=== PATIENT | female | born 1990 | race Two or more races ===

== ENCOUNTER → 2017-06-03 | Outpatient (CLI) | payer BC ==
[2016-08-02 00:17] VITALS: BP 134/76
[~2017-06-03] MED LIST: IBUP-1060 PO; PNV1TABL25 PO
--- NOTE | 2017-06-03 15:03 | RAD ---
PELVIS W/TV Clinical Indication: HEAVY VAGINAL BLEEDING Comparison: None. Technique: Grayscale and color Doppler ultrasound of the pelvis was obtained. Transabdominal and transvaginal techniques were utilized. Findings: The uterus measures 10.1 x 5.7 x 6.0 cm. It contains thickened, heterogeneously hyperechoic endometrium measuring up to 3.4 cm. The bilateral ovaries are normal in appearance with normal blood flow. The right ovary measures 2.3 x 1.3 x 2.4 cm. The left ovary measures 2.2 x 1.9 x 2.2 cm. Trace free fluid seen in the pelvis. IMPRESSION: 1. Thickened, heterogeneously hyperechoic endometrium may relate to blood products given patient's age. Recommend follow-up ultrasound in 6 weeks to document resolution. 2. Trace pelvic free fluid, likely physiologic.
== END | disposition home or self-care (01) ==
LOC: US 09:02
PROVIDERS: ATTEND Family Medicine
DX: N93.9 Abnormal uterine and vaginal bleeding, unspecified (principal)
CPT/HCPCS: 76830; 76856

== ENCOUNTER 2019-10-20 09:16 | Emergency (ER) | payer OTHER ==
[~2019-10-20] VITALS: Ht 157.5 cm; Wt 113.4 kg
[2019-10-20 09:40] VITALS: BP 149/80
[2019-10-20 10:18] LABS: BILIRUBIN,URINE NEGATIVE (NEG); CLARITY,URINE CLOUDY; COLOR,URINE YELLOW; NITRITE,URINE NEGATIVE (NEG); PROTEIN,URINE NEGATIVE (NEG-TRACE); UROBILINOGEN,URINE 0.2 mg/dL (0.2 mg/dL)
[2019-10-20 10:24] LABS: BARBITURATES NEG (NEG); BENZODIAZEPINES NEG (NEG); CANNABINOIDS POS (NEG); COCAINE NEG (NEG); METHADONE NEG (NEG); OPIATES NEG (NEG); PHENCYCLIDINE NEG (NEG)
[2019-10-20 10:31] LABS: AMPHETAMINE/METHAMPHETAMINE NEG (NEG); WBC,URINE >40 /HPF (0-4)
[2019-10-20 10:32] LABS: BACTERIA,URINE MODERATE /HPF (0-FEW); SQUAMOUS EPITHELIAL CELL,UR MANY /LPF
--- NOTE | 2019-10-20 10:37 | PHYS DOC ---
Past Medical History Past Medical History: No Pertinent History Past Surgical History: Cholecystectomy, Tonsillectomy, Other Additional Past Surgical Histo: . Alcohol Use: None Drug Use: None Adult General Chief Complaint Chief Complaint: ABDOMINAL PAIN IN [facility] HPI Patient is a 29 year old female 4 para 2, with 1 , currently 12 weeks who presents to the ED today complaining of abdominal cramping described as mild to moderate that began yesterday. Patient denies any exacerbating or relieving factors to her pain. She is also reporting she had spotting yesterday but nothing today. She reports she saw Dr. 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 Patient denies any nausea, vomiting. Denies any fever. She does also complaining of an area of redness on the left breast that began one week ago. Denies any drainage from the area. Denies any nipple discharge. She reports her tetanus is up-to-date. Patient denies any personal family history of breast cancer. Review of Systems Review of Systems Constitutional: Denies fever or chills [] Eyes: Denies change in visual acuity, redness, or eye pain [] HENT: Denies nasal congestion or sore throat [] Respiratory: Denies cough or shortness of breath [] Cardiovascular: No additional information not addressed in HPI [] GI: Reports abdominal cramping and , vaginal spotting, denies nausea, vomiting, bloody stools or diarrhea [] : Denies dysuria or hematuria [] Musculoskeletal: Denies back pain or joint pain [] Integument: Reports an area of redness on the left breast Neurologic: Denies headache, focal weakness or sensory changes [] All other systems were reviewed and found to be within normal limits, except as documented in this note. Allergies Allergies Allergies Coded Allergies Type Severity Reaction Last Updated Verified No Known Drug Allergies 12/27/13 No Physical Exam Physical Exam Constitutional: Well developed, well nourished, no acute distress, non-toxic appearance. [] HENT: Normocephalic, atraumatic, bilateral external ears normal, oropharynx moist, no oral exudates, nose normal. [] Eyes: PERRLA, EOMI, conjunctiva normal, no discharge. [] Neck: Normal range of motion, no tenderness, supple, no stridor. [] Cardiovascular:Heart rate regular rhythm, no murmur [] Lungs & Thorax: Bilateral breath sounds clear to auscultation [] Abdomen: Bowel sounds normal, soft, no tenderness, no masses, no pulsatile masses. [] Pelvic exam External pelvic appears normal, cervix is not visualized due to body habitus. Trace amount of white discharge noted in the vaginal vault, no bleeding, no adnexal tenderness, no CMT. Skin: Under last breast, left breast at around 8 PM position with an area of redness approximately 3 x 3 cm, the area is firm with no fluctuance, the area is warm and tender to touch. No nipple dimpling, no nipple drainage. This appears to be an abscess with cellulitis that is not ready to be drained. Back: No tenderness, no CVA tenderness. [] Extremities: No tenderness, no cyanosis, no clubbing, ROM intact, no edema. [] Neurologic: Alert and oriented X 3, normal motor function, normal sensory function, no focal deficits noted. [] Psychologic: Affect normal, judgement normal, mood normal. [] Current Patient Data Vital Signs Vital Signs Date Time Temp Pulse Resp B/P (MAP) Pulse Ox O2 Delivery O2 Flow Rate FiO2 10/20/19 09:40 98.0 87 16 149/80 (103) 100 Room Air 98.0 Lab Values Laboratory Tests Test 10/20/19 09:40 10/20/19 10:30 Urine Collection Type Unknown Urine Color Yellow Urine Clarity Cloudy Urine pH 6.0 Urine Specific [place] 1.010 Urine Protein Negative mg/dL (NEG-TRACE) Urine Glucose (UA) Negative mg/dL (NEG) Urine Ketones (Stick) 15 mg/dL (NEG) Urine Blood Moderate (NEG) Urine Nitrite Negative (NEG) Urine Bilirubin Negative (NEG) Urine Urobilinogen Dipstick 0.2 mg/dL (0.2 mg/dL) Urine Leukocyte Esterase Large (NEG) Urine RBC 11-20 /HPF (0-2) Urine WBC >40 /HPF (0-4) Urine Squamous Epithelial Cells Many /LPF Urine Bacteria Moderate /HPF (0-FEW) Urine Mucus Marked /LPF Urine Opiates Screen Neg (NEG) Urine Methadone Screen Neg (NEG) Urine Barbiturates Neg (NEG) Urine Phencyclidine Screen Neg (NEG) Urine Amphetamine/Methamphetamine Neg (NEG) Urine Benzodiazepines Screen Neg (NEG) Urine Cocaine Screen Neg (NEG) Urine Cannabinoids Screen Pos (NEG) Urine Ethyl Alcohol Neg (NEG) White Blood Count 8.2 x10^3/uL (4.0-11.0) Red Blood Count 4.29 x10^6/uL (3.50-5.40) Hemoglobin 11.6 g/dL (12.0-15.5) L Hematocrit 34.5 % (36.0-47.0) L Mean Corpuscular Volume 81 fL (79-100) Mean Corpuscular Hemoglobin 27 pg (25-35) Mean Corpuscular Hemoglobin Concent 34 g/dL (31-37) Red Cell Distribution Width 15.9 % (11.5-14.5) H Platelet Count 213 x10^3/uL (140-400) Neutrophils (%) (Auto) 75 % (31-73) H Lymphocytes (%) (Auto) 18 % (24-48) L Monocytes (%) (Auto) 5 % (0-9) Eosinophils (%) (Auto) 1 % (0-3) Basophils (%) (Auto) 0 % (0-3) Neutrophils # (Auto) 6.1 x10^3/uL (1.8-7.7) Lymphocytes # (Auto) 1.5 x10^3/uL (1.0-4.8) Monocytes # (Auto) 0.4 x10^3/uL (0.0-1.1) Eosinophils # (Auto) 0.1 x10^3/uL (0.0-0.7) Basophils # (Auto) 0.0 x10^3/uL (0.0-0.2) Maternal Serum HCG Beta Subunit 64275 mIU/mL (0-5) H Sodium Level 138 mmol/L (136-145) Potassium Level 3.3 mmol/L (3.5-5.1) L Chloride Level 103 mmol/L (98-107) Carbon Dioxide Level 25 mmol/L (21-32) Anion Gap 10 (6-14) Blood Urea Nitrogen 3 mg/dL (7-20) L Creatinine 0.5 mg/dL (0.6-1.0) L Estimated GFR (Cockcroft-Gault) 145.9 BUN/Creatinine Ratio 6 (6-20) Glucose Level 106 mg/dL (70-99) H Calcium Level 9.1 mg/dL (8.5-10.1) Total Bilirubin 0.5 mg/dL (0.2-1.0) Aspartate Amino Transferase (AST) 12 U/L (15-37) L Alanine Aminotransferase (ALT) 20 U/L (14-59) Alkaline Phosphatase 68 U/L (46-116) Total Protein 7.5 g/dL (6.4-8.2) Albumin 3.1 g/dL (3.4-5.0) L Albumin/Globulin Ratio 0.7 (1.0-1.7) L Laboratory Tests 10/20/19 10:30 Laboratory Tests 10/20/19 10:30 Microbiology 10/20/19 Wet Prep - Final, Complete EKG EKG [] Radiology/Procedures Radiology/Procedures []PROCEDURE: OB < 14 WKS OB < 14 WKS History: Abdominal pain. . Comparison: None. Technique: Grayscale and color Doppler imaging of the pelvis was performed using transabdominal technique. Findings: The uterus measures 17 x 9 x 7 cm in length. Single intrauterine with crown-rump length 5.9 cm. Estimated gestational age by ultrasound 12 weeks 3 days. heart rate 157 bpm. Right ovary measures 3.8 x 2.4 x 2.2 cm and is unremarkable. Left ovary measures 3.2 x 1.7 x 2.2 cm and is unremarkable. No adnexal masses are seen. IMPRESSION: 1. Intrauterine with gestational age 12 weeks 3 days and heart rate 157 bpm. Electronically signed by: Marlon Miles DO (10/20/2019 10:50 AM) [id number] DICTATED and SIGNED BY: MARLON MILES DO DATE: 10/20/19 105 Course & Med Decision Making Course & Med Decision Making Pertinent Labs and Imaging studies reviewed. (See chart for details) This is a 29-year-old female patient currently 12 weeks presenting to the ED today with vaginal spotting in that occurred yesterday, nothing today, abdominal cramping, and abscess and cellulitis on the left breast. The abscess on cellulitis is not ready to be drained. OB ultrasound noted for IUP 12 weeks 3 days heart rate 157. Wet prep with no acute findings lab work with no acute findings Blood group O positive Urine analysis is noted for UTI, will be discharge patient on cephalexin Patient was provided return precautions and discharged in stable condition Provided DOG FOOD SHREDDER OPERATOR for follow-up Eder Disclaimer Dragnabeel Disclaimer This electronic medical record was generated, in whole or in part, using a voice recognition dictation system. Departure Departure Impression: Primary Impression: Abdominal pain during Additional Impressions: Left breast abscess Urinary tract infection during Disposition: HOME, SELF-CARE Condition: STABLE Referrals: NO PCP (PCP) PHILIPPE LENNON MD follow up in 1 week Patient Instructions: Abdominal Pain During , [id number], Abscess, Aeyr-oo-Owin, - Urinary Tract Infection Additional Instructions: You were evaluated in the emergency room for infection on her breast, you also have urinary tract infection. Take the prescribed antibiotics until completed. Please apply warm compresses to the left breast every 12 hours. Please follow-up with an DOG FOOD SHREDDER OPERATOR in the course of next week. Your prescription was sent to the pharmacy [facility] Cephalexin (CEPHALEXIN) 500 Mg Tablet 1 TAB PO BID, #20 TAB Prov: JOSEPH GEORGE APRN 10/20/19 Problem Qualifiers Primary Impression: Abdominal pain during Trimester: first trimester Qualified Codes: O26.891 - Other specified related conditions, first trimester; R10.9 - Unspecified abdominal pain Additional Impressions: Urinary tract infection during Trimester: first trimester Qualified Codes: O23.41 - Unspecified infection of urinary tract in , first trimester JOSEPH GEORGE APRN Oct 20, 2019 10:37
--- NOTE | 2019-10-20 10:53 | RAD ---
OB < 14 WKS History: Abdominal pain. . Comparison: None. Technique: Grayscale and color Doppler imaging of the pelvis was performed using transabdominal technique. Findings: The uterus measures 17 x 9 x 7 cm in length. Single intrauterine with crown-rump length 5.9 cm. Estimated gestational age by ultrasound 12 weeks 3 days. heart rate 157 bpm. Right ovary measures 3.8 x 2.4 x 2.2 cm and is unremarkable. Left ovary measures 3.2 x 1.7 x 2.2 cm and is unremarkable. No adnexal masses are seen. IMPRESSION: 1. Intrauterine with gestational age 12 weeks 3 days and heart rate 157 bpm. Electronically signed by: Marlon Miles DO (10/20/2019 10:50 AM) [id number]
[2019-10-20 10:59] LABS: BASO % 0 % (0-3); EOS # 0.1 x10^3/uL (0.0-0.7); EOS % 1 % (0-3); HEMATOCRIT 34.5 % (36.0-47.0); HEMOGLOBIN 11.6 g/dL (12.0-15.5); LYMPH # 1.5 x10^3/uL (1.0-4.8); LYMPH % 18 % (24-48); MEAN CORPUSCULAR HEMOGLOBIN 27 pg (25-35); MEAN CORPUSCULAR HGB CONC 34 g/dL (31-37); MEAN CORPUSCULAR VOLUME 81 fL (79-100); MONO # 0.4 x10^3/uL (0.0-1.1); MONO % 5 % (0-9); NEUT # 6.1 x10^3/uL (1.8-7.7); NEUT % 75 % (31-73); PLATELET COUNT 213 x10^3/uL (140-400); RED BLOOD COUNT 4.29 x10^6/uL (3.50-5.40); RED CELL DISTRIBUTION WIDTH 15.9 % (11.5-14.5); WHITE BLOOD COUNT 8.2 x10^3/uL (4.0-11.0)
[2019-10-20 11:03] LABS: CALCIUM 9.1 mg/dL (8.5-10.1); CREATININE 0.5 mg/dL (0.6-1.0); GFR 145.9; POTASSIUM 3.3 mmol/L (3.5-5.1)
[2019-10-20 11:09] LABS: ALBUMIN 3.1 g/dL (3.4-5.0); ALBUMIN/GLOBULIN RATIO 0.7 (1.0-1.7); TOTAL BILIRUBIN 0.5 mg/dL (0.2-1.0); TOTAL PROTEIN 7.5 g/dL (6.4-8.2)
[2019-10-20] MEDS ORDERED: CEPH500T PO (11:54)
[2019-10-21 20:08] LABS: GC PROBE Negative (Negative)
== END 2019-10-20 12:43 | disposition home or self-care (01) ==
LOC: ER 09:16
DX: O23.41 Unspecified infection of urinary tract in pregnancy, first trimester (principal); O91.111 Abscess of breast associated with pregnancy, first trimester; Z3A.12 12 weeks gestation of pregnancy; Z90.49 Acquired absence of other specified parts of digestive tract
CPT/HCPCS: 36415; 76801; 80053; 80307; 81001; 84702; 85025; 86850; 86900; 86901; 87086; 87491; 87591; 99285; Q0111